=== PATIENT | female | born 1990 ===

== ENCOUNTER 2016-11-08 19:37 | Emergency (ER) | payer OTHER ==
[2016-11-08] MEDS ORDERED: Sodium Chloride 0.9% 1,000 ML IV STA (20:01)
[2016-11-08 20:40] LABS: HEMATOCRIT 34.3 % (36.0-48.0); MEAN CELL VOLUME 86.8 fL (80.0-105.0); MEAN CORPUSCULAR HEMOGLOBIN 29.6 pg (25.0-35.0); MEAN CORPUSCULAR HGB CONC 34.1 g/dl (31.0-37.0); MEAN PLATELET VOLUME 9.5 fl (7.0-11.0); PLATELET COUNT 235 10^3/uL (120.0-450.0); WHITE BLOOD COUNT 18.9 10^3/ul (4.5-11.0)
[2016-11-08 20:42] LABS: URINE BILIRUBIN NEGATIVE (NEGATIVE); URINE BLOOD TRACE-INTACT (NEGATIVE); URINE GLUCOSE (UA) NEGATIVE (NEGATIVE); URINE KETONE NEGATIVE (NEGATIVE); URINE LEUKOCYTE ESTERASE NEGATIVE Leu/uL (NEGATIVE); URINE PROTEIN NEGATIVE mg/dL (<30 mg/dL); URINE UROBILINOGEN 0.2 E.U./dL (<1 E.U./dL)
[2016-11-08 20:45] LABS: ADD MANUAL DIFF? YES
[2016-11-08 20:46] LABS: URINE APPEARANCE CLEAR (CLEAR); URINE COLOR YELLOW (YELLOW)
[2016-11-08 20:47] LABS: ALB/GLOB RATIO 1.4 (1.1-1.8); ALKALINE PHOSPHATASE 43 U/L (38-133); ALT/SGPT 47 U/L (7-56); AST/SGOT 42 U/L (15-39); BILIRUBIN,TOTAL 0.4 mg/dL (0.2-1.3); BLOOD UREA NITROGEN 19 mg/dL (7-21); CALCIUM 9.2 mg/dL (8.4-10.5); CARBON DIOXIDE 22 mmol/L (21-33); CHLORIDE 99 mmol/L (98-107); GFR AFRICAN-AMERICAN > 60; GLUCOSE,RANDOM 95 mg/dL (70-110); SODIUM 132 mmol/L (132-148); TOTAL PROTEIN 7.4 g/dL (5.8-8.3)
[2016-11-08 21:16] LABS: URINE AMORPHOUS SEDIMENT MODERATE; URINE BACTERIA LARGE (NEG); URINE RBC 0 - 2 /hpf (0-2); URINE WBC 0 - 2 /hpf (0-6)
[2016-11-08 21:52] LABS: BAND 9 % (0-2); NEUTROPHIL 82 % (50.0-70.0)
[2016-11-08 21:53] LABS: BASOPHIL 1 % (0.0-1.0); PLATELET ESTIMATE NORMAL (NORMAL)
[2016-11-08 22:01] LABS: VENOUS BLOOD GAS BASE EXCESS -4.2 mmol/L (0.0-2.0); VENOUS BLOOD PH 7.38 (7.32-7.43)
--- NOTE | 2016-11-08 22:29 | RAD ---
EXAM: XR Chest, 2 Views CLINICAL HISTORY: 26 years old, female; Signs and symptoms; Cough; Symptoms not specified; Additional info: Cough/fever TECHNIQUE: Frontal and lateral views of the chest. COMPARISON: No relevant prior studies available. FINDINGS: The cardiomediastinal silhouette is unremarkable. Patchy opacification within the superior segment of the right lower lobe. The remainder of the lungs are clear. No subdiaphragmatic free air or pneumothorax. The trachea is midline. IMPRESSION: Consolidation within the superior segment of the right lower lobe, as detailed above.
--- NOTE | 2016-11-08 22:42 | ED PDOC ---
Arrival/HPI - General Historian: Patient <Tanya Anderson - Last Filed: 11/09/16 01:00> <Stevie Ellis - Last Filed: 11/09/16 02:03> - General Chief Complaint: Fever Time Seen by Provider: 11/08/16 19:40 - History of Present Illness Narrative History of Present Illness (Text): 11/09/16 01:53 26 year old female presents today with a two-week history of productive cough with nasal congestion and sore throat and a one-day history of fever of 103. Patient states fever started today about an hour prior to arrival. Patient complaining of nasal congestion and complaining of cough and feeling just slightly short of breath. Denies abdominal pain. No urinary symptoms. Denies vomiting or diarrhea. Patient states she took Tylenol just before coming to the emergency room. (Tanya Anderson) Past Medical History - Provider Review Nursing Documentation Reviewed: Yes - Travel History Have you recently traveled outside [place] w/in the past 3 mons?: No - Tetanus Immunization Tetanus Immunization: Unknown - Cardiac Hx Cardiac Disorders: No - Pulmonary Hx Asthma: Yes Hx Bronchitis: Yes - Neurological Hx Neurological Disorder: No - HEENT Hx HEENT Disorder: No - Renal Hx Renal Disorder: No - Endocrine/Metabolic Hx Endocrine Disorders: No - Hematological/Oncological Hx Blood Disorders: No - Integumentary Hx Dermatological Disorder: No - Musculoskeletal/Rheumatological Hx Musculoskeletal Disorders: No - Gastrointestinal Hx Gastrointestinal Disorders: No - Genitourinary/Gynecological Hx Genitourinary Disorders: No - Psychiatric Hx Anxiety: Yes Hx Substance Use: No <Tanya Anderson - Last Filed: 11/09/16 01:00> Family/Social History - Physician Review Nursing Documentation Reviewed: Yes Family/Social History: Unknown Family HX Smoking Status: Never Smoked Hx Alcohol Use: Yes Frequency of alcohol use: Socially Hx Substance Use: No <Tanya Anderson - Last Filed: 11/09/16 01:00> Allergies/Home Meds <Tanya Anderson - Last Filed: 11/09/16 01:00> <Stevie Ellis - Last Filed: 11/09/16 02:03> Allergies/Adverse Reactions: Allergies Penicillins Allergy (Verified 11/08/16 19:38) VOMITING Review of Systems - Review of Systems Constitutional: Fatigue, Fevers ENT: Sore Throat, Sinus Congestion Respiratory: SOB, Cough. absent: Wheezing Cardiovascular: absent: Chest Pain, Palpitations Gastrointestinal: absent: Abdominal Pain, Nausea, Vomiting Genitourinary Female: absent: Dysuria Musculoskeletal: absent: Arthralgias, Back Pain, Neck Pain Neurological: absent: Headache, Dizziness Psychiatric: absent: Anxiety, Depression <Tanya Anderson - Last Filed: 11/09/16 01:00> Physical Exam Vital Signs Reviewed: Yes Temperature: Febrile Blood Pressure: Normal Pulse: Tachycardic Respiratory Rate: Normal Appearance: Positive for: Well-Appearing, Non-Toxic, Comfortable Pain Distress: None Mental Status: Positive for: Alert and Oriented X 3 - Systems Exam Head: Present: Atraumatic Ears: Present: Normal, NORMAL TM Mouth: Present: Moist Mucous Membranes Pharnyx: Present: Normal. No: ERYTHEMA, EXUDATE, TONSILS ENLARGED, Peritonsilar Swelling, Uvular Deviation, Muffled/Hoarse Voice Nose (External): Present: Atraumatic Nose (Internal): Present: Normal Inspection Neck: Present: Normal Range of Motion, Trachea Midline. No: Lymphadenopathy Respiratory/Chest: Present: Clear to Auscultation, Good Air Exchange. No: Respiratory Distress, Accessory Muscle Use, Wheezes, Retracting, Rhonchi, Tachypneic Cardiovascular: Present: Regular Rate and Rhythm, Normal S1, S2. No: Murmurs Abdomen: No: Tenderness Upper Extremity: Present: Normal ROM Lower Extremity: Present: Normal ROM Neurological: Present: GCS=15, Speech Normal Skin: Present: Warm, Dry, Normal Color. No: Rashes Psychiatric: Present: Alert, Oriented x 3 <Tanya Anderson - Last Filed: 11/09/16 01:00> Medical Decision Making <Tanya Anderson - Last Filed: 11/09/16 01:00> <Stevie Ellis - Last Filed: 11/09/16 02:03> ED Course and Treatment: 26YR OLD FEMALE WITH COUGH X 2 WEEKS AND FEVER SINCE TODAY. CBC; wbc; 18.9 CMP: elevated ast lactate; 0.8 CXR; FINDINGS: The cardiomediastinal silhouette is unremarkable. Patchy opacification within the superior segment of the right lower lobe. The remainder of the lungs are clear. No subdiaphragmatic free air or pneumothorax. The trachea is midline. IMPRESSION: Consolidation within the superior segment of the right lower lobe, as detailed above. discussed results in depth with patient; offered admission for pneumonia leukocytosis, fever. pt refused. states she feels better and wants to go home. pt agreed to first dose of levaquin IV and then will sign AMA. stressed importance of f/u with PMD JAIDA. advised immediate return if she wishes to continue her care or if symptoms worsen,persist or if new concerning symptoms develop. 11/08/16 22:41 Patient has been advised to not leave the emergency room but has decided to go AGAINST MEDICAL ADVICE. The patient possesses capacity to make decisions and has voiced understanding to all my warnings of potential worsening of the condition for which medical care was sought. I have discussed all known and potential risks and consequences to the patient leaving AGAINST MEDICAL ADVICE. pt aware of risk of sepsis, respiratory failure , , disability or worsening of symptoms. Patient is leaving against medical advise. AMA form signed. witness by CAMMIE brady. pt was advised that she can return at any point in time to continue her care. impression; Pneumonia, fever, leukocytosis RETURN IF YOU WISH TO CONTINUE YOUR CARE. Motrin every 6 hours as needed for fever reduction Levaquin daily x 7 days Increase fluids Follow up with the primary care physician within the next 2 days. RETURN IMMEDIATELY IF SYMPTOMS WORSEN,PERSIST OR IF NEW SYMPTOMS DEVELOP. (Tanya Anderson) - Lab Interpretations Lab Results: 11/08/16 20:00 11/08/16 20:00 Lab Results 11/08/16 21:50: pO2 126 H, VBG pH 7.38, VBG pCO2 34.0 L, VBG HCO3 20.1 L, VBG Total CO2 21.1 L, VBG O2 Sat (Calc) 99.6 H, VBG Base Excess -4.2 L, VBG Potassium 3.5 L, Glucose 97, Lactate 0.8, FiO2 21.0, Sodium 134.0, Chloride 107.0, Venous Blood Potassium 3.5 L 11/08/16 20:00: WBC 18.9 H, RBC 3.95, Hgb 11.7 L, Hct 34.3 L, MCV 86.8, MCH 29.6 , MCHC 34.1, RDW 14.0, Plt Count 235, MPV 9.5, Neutrophils % (Manual) 82 H, Band Neutrophils % 9 H, Lymphocytes % (Manual) 5 L, Monocytes % (Manual) 3, Basophils % (Manual) 1, Platelet Evaluation Normal 11/08/16 20:00: Sodium 132, Potassium 4.0, Chloride 99, Carbon Dioxide 22, Anion Gap 15, BUN 19, Creatinine 0.8, Est GFR ( Amer) > 60, Est GFR (Non- Af Amer) > 60, Random Glucose 95, Calcium 9.2, Total Bilirubin 0.4, AST 42 H, ALT 47, Alkaline Phosphatase 43, Total Protein 7.4, Albumin 4.3, Globulin 3.1, Albumin/Globulin Ratio 1.4 11/08/16 20:00: Urine Color Yellow, Urine Appearance Clear, Urine pH 6.0, Ur Specific [place]oun 1.025, Urine Protein Negative, Urine Glucose (UA) Negative, Urine Ketones Negative, Urine Blood Trace-intact H, Urine Nitrate Negative, Urine Bilirubin Negative, Urine Urobilinogen 0.2, Ur Leukocyte Esterase Negative , Urine RBC 0 - 2, Urine WBC 0 - 2, Ur Epithelial Cells 3 - 4, Amorphous Sediment Moderate, Urine Bacteria Large - RAD Interpretation Radiology Orders: 11/08/16 20:02 CHEST TWO VIEWS (PA/LAT) [RAD] Stat - Medication Orders Current Medication Orders: Discontinued Medications Sodium Chloride (Sodium Chloride 0.9%) 1,000 mls @ 999 mls/hr IV .Q1H1M STA Stop: 11/08/16 21:01 Last Admin: 11/08/16 20:23 Dose: 999 mls/hr Ketorolac Tromethamine (Toradol) 30 mg IVP STAT STA Stop: 11/08/16 20:02 Last Admin: 11/08/16 20:27 Dose: 30 mg Levofloxacin/Dextrose (Levaquin 750mg) 750 mg IVPB STAT STA Stop: 11/08/16 22:35 Last Admin: 11/09/16 00:46 Dose: 750 mg - PA / PANEL SEWER / Resident Statement / has reviewed & agrees with the documentation as recorded. / has examined the patient and agrees with the treatment plan. <Stevie Ellis - Last Filed: 11/09/16 02:03> Disposition/Present on Arrival - Present on Arrival Any Indicators Present on Arrival: No History of DVT/PE: No History of Uncontrolled Diabetes: No Urinary Catheter: No History of Decub. Ulcer: No History Surgical Site Infection Following: None - Disposition Have Diagnosis and Disposition been Completed?: Yes Disposition Time: 22:40 Patient Plan: Other (AMA) <Tanya Anderson - Last Filed: 11/09/16 01:00> <Stevie Ellis - Last Filed: 11/09/16 02:03> - Disposition Diagnosis: Pneumonia, Fever, Leukocytosis Disposition: AGAINST MEDICAL ADVICE Patient Problems: Current Active Problems Problem Status Onset Fever Acute Leukocytosis Acute Pneumonia Acute Condition: GUARDED Discharge Instructions (ExitCare): Pneumonia (ED) Additional Instructions: RETURN IF YOU WISH TO CONTINUE YOUR CARE. Motrin every 6 hours as needed for fever reduction Levaquin daily x 7 days Increase fluids Follow up with the primary care physician within the next 2 days. RETURN IMMEDIATELY IF SYMPTOMS WORSEN,PERSIST OR IF NEW SYMPTOMS DEVELOP. Prescriptions: Ibuprofen [Motrin] 600 mg PO Q6H PRN #20 tab PRN Reason: pain/fever reduction levoFLOXacin [Levaquin] 750 mg PO DAILY #7 tab Referrals: Kyrie Bishop MD [Medical Doctor] - Follow up with primary [facility] at [facility] [place] [Outside] - Follow up with primary Forms: WORK NOTE
[2016-11-08] MEDS: levoFLOXacin 750 mg in D5W 150 ML BAG IVPB STA (23:17)
[2016-11-09] MEDS: levoFLOXacin 750 mg in D5W 150 ML BAG IVPB STA (00:46)
[2016-11-09 01:14] VITALS: BP 114/72; PULSE 84; RESP 18; TEMP 98.2; O2SAT 100
== END 2016-11-09 01:15 | disposition left against medical advice (07) ==
LOC: ED 19:37
DX: J18.9 Pneumonia, unspecified organism (principal); R50.9 Fever, unspecified; D72.829 Elevated white blood cell count, unspecified
CPT/HCPCS: 71020; 80053; 81001; 82803; 85025; 87040; 87149; 87181; 87205; 96365; 96375; 99285; J1885; J7040